=== PATIENT | female | born 1965 | race Caucasian/White ===

== ENCOUNTER 2016-06-08 17:00 | Emergency (ER) | payer MEDICAID ==
[2016-06-08 17:07] VITALS: BP 144/90; PULSE 87; RESP 16; TEMP 97.5; O2SAT 98
--- NOTE | 2016-06-08 17:14 | EDPHY ---
H & P Stated Complaint: Sore throat x 1 month Time Seen by Provider: 06/08/16 17:14 - Personal History LMP (Females 10-55): Now Current Tetanus Diphtheria and Acellular Pertussis (TDAP): Yes - Social History Smoking Status: Never smoked Constitutional: Initial Vital Signs Temperature (C) 36.4 C 06/08/16 17:04 Heart Rate 87 06/08/16 17:04 Respiratory Rate 16 06/08/16 17:04 Blood Pressure 144/90 H 06/08/16 17:04 O2 Sat (%) 98 06/08/16 17:04 Allergies/Adverse Reactions: hydrocodone bitartrate [From Vicodin] Allergy (Mild, Verified 06/08/16 17:08) makes me vomit acetaminophen [From Vicodin] Allergy (Verified 06/08/16 17:04) Home Medications: Medication Instructions Recorded AZITHROMYCIN [Z-PACK] 250 mg PO DAILY #1 packet 06/08/16 Sucralfate [Carafate Suspension] 1,000 mg PO QID #120 ml 06/08/16 Medical Decision Making ED Course/Re-evaluation: CHIEF COMPLAINT: Throat pain HISTORY OF PRESENT ILLNESS: The patient is a 50 y/o female complaining of a sore throat for the last month and more recently she developed painful swallowing. She is able to swallow and denies any difficulty breathing. She says , "it goes down, but with a huge amount of pain." She denies obvious preceding event like trauma or pill. No pertinent medical history. REVIEW OF SYSTEMS: A 10 point review of systems was performed and is negative with the exception of the elements mentioned in the history of present illness. PHYSICAL EXAM: HR, BP, O2 Sat, RR. Temp noted General Appearance: Alert, well hydrated, appropriate, and non-toxic appearing. Head: Atraumatic without scalp tenderness or obvious injury Eyes: Pupils equal, round, reactive to light and accommodation, EOMI, no trauma , no injection. Ears: Clear bilaterally, no perforation, normal landmarks Nose: Atraumatic, no rhinorrhea, clear. Throat: Mild erythema, no exudates, no lesions, normal tonsils, mucus membranes moist. Neck: Supple, 2+ carotid upstroke, nontender, no lymphadenopathy. Respiratory: No retractions, no distress, no wheezes, and no accessory muscle use. Lungs are clear to auscultation bilaterally. Neurological: Alert, appropriate, and interactive. Skin: No rashes, good turgor, no nodules on palpation. Past medical history: Denies Past surgical history: Denies Family history: Noncontributory Social history: Family member at bedside DIFFERENTIAL DIAGNOSIS: The differential diagnosis for the patient's throat pain included but was not limited to erosive esophagitis, GERD, esophageal spasm , pharyngitis. MEDICAL DECISION MAKING: This is a healthy 50 y/o female presenting with a 1-month history of throat pain and odynophagia. She has no respiratory symptoms and is still able to eat and drink. I cannot reproduce her symptoms on exam. I believe her symptoms are most likely caused by erosive esophagitis. She will be discharged with Carafate solution, azithromycin, and ENT follow up. She is comfortable with this plan. Return precautions given. Departure - Departure Disposition: Home, Routine, Self-Care Clinical Impression: Erosive esophagitis, Odynophagia Condition: Good Instructions: Esophagitis (ED) Additional Instructions: 1. Use Carafate solution as prescribed for throat pain. 2. Take azithromycin as prescribed. Be sure to complete the entire prescription. 3. Follow up with Dr. Thomas, ENT, next week. 4. Return to the ED for severe pain, inability to swallow, or difficulty breathing. Referrals: SHEBA MARIE [Primary Care Provider] - As per Instructions Kg Thomas MD [Medical Doctor] - As per Instructions Prescriptions: AZITHROMYCIN [Z-PACK] 250 mg PO DAILY #1 packet Sucralfate [Carafate Suspension] 1,000 mg PO QID #120 ml Report Scribed for: Chong Teresa Report Scribed by: Jeni Ng Date of Report: 06/08/16 Time of Report: 17:19
[2016-06-08] MEDS ORDERED: AZITHROMYCIN 250 MG TAB PO ONE (17:20)
[2016-06-08] MEDS ORDERED: SUCRALFATE 1 GM/10 ML UDCUP PO ONE (17:21)
== END 2016-06-08 17:45 | disposition home or self-care (01) ==
DX: K20.9 Esophagitis, unspecified (principal)

== ENCOUNTER → 2016-11-19 | Outpatient (CLI) | payer MEDICAID | LOC: FIMAGING 11:36 | PROVIDERS: ATTEND Family Medicine | DX: Z12.31 Encounter for screening mammogram for malignant neoplasm of breast (principal) | CPT/HCPCS: G0202 ==

== ENCOUNTER 2017-01-27 11:43 | Emergency (ER) | payer MEDICAID ==
[2017-01-27 11:51] VITALS: RESP 18
[2017-01-27] MEDS ORDERED: LIDOCAINE 5% 1 EA PATCH TD ONE (12:19)
[2017-01-27] MEDS ORDERED: IBUPROFEN 600 MG TAB PO ONE (12:19)
[2017-01-27] MEDS ORDERED: OXYCODONE/APAP 5/325 TAB PO ONE (12:19)
--- NOTE | 2017-01-27 13:15 | EDPHY ---
H & P Stated Complaint: lifting water jug a few days ago/pulled back/muscle spasms Time Seen by Provider: 01/27/17 12:03 HPI/ROS: Chief complaint: Left-sided back pain History of present illness: 51-year-old female presents to the emergency department for left-sided back pain. Patient reports the onset of symptoms 2 days ago. She was lifting water jugs when she felt something pull in her back. Since then she has had pain. It has waxed and waned in intensity. It is worse with movement. She did has used ibuprofen minimal to moderate effect. She denies other associated signs or symptoms including no direct trauma, no midline spine pain, no fevers, no paresthesias, no weakness or paralysis, bowel or bladder dysfunction. - Personal History LMP (Females 10-55): 15-21 Days Ago Current Tetanus/Diphtheria Vaccine: Yes - Medical/Surgical History Hx Asthma: No Hx Chronic Respiratory Disease: No Hx Diabetes: No Hx Cardiac Disease: No Hx Renal Disease: No Hx Cirrhosis: No Hx Alcoholism: No Hx HIV/AIDS: No Hx Splenectomy or Spleen Trauma: No Other PMH: denies - Social History Smoking Status: Never smoked - Physical Exam Exam: General Appearance: Alert, nontoxic Eyes: PERRLA Respiratory: Lungs clear to auscultation bilaterally Cardiac: Regular rate and rhythm. Gastrointestinal: Bowel sounds normal. Abdomen soft, nondistended, nontender. Neurological: Alert and oriented x4. Strength and sensation intact and symmetrical. Ambulating well. Skin: No lesions consistent with trauma inspection of the back. Musculoskeletal: The head is nontender. The spine is nontender to palpation along its entire length, there is no crepitus, bony deformity or step-off. There is tenderness over the left paraspinal muscles at the mid thoracic level. I am able to reproduce her pain. Patient is moving all extremities without difficulty. Constitutional: Initial Vital Signs Temperature (C) 36.7 C 01/27/17 11:48 Heart Rate 72 01/27/17 11:48 Respiratory Rate 18 01/27/17 11:48 Blood Pressure 140/100 H 01/27/17 11:48 O2 Sat (%) 98 01/27/17 11:48 O2 Delivery Mode Room Air Allergies/Adverse Reactions: hydrocodone bitartrate [From Vicodin] Allergy (Mild, Verified 01/27/17 11:47) makes me vomit acetaminophen [From Vicodin] Allergy (Verified 01/27/17 11:47) Home Medications: Medication Instructions Recorded oxyCODONE/APAP 5/325 [Percocet 1 tab PO Q6H #6 tab 01/27/17 5/325 (*)] Medical Decision Making ED Course/Re-evaluation: Patient seen under the supervision of my secondary supervising physician Dr. Teto Haddad. Patient presents to the emergency department for left-sided mid back pain. This appears to be musculoskeletal in nature as there was a precipitating factor of lifting heavy water jug, pain is worse with movement and it is reproducible on palpation. She is symptomatically treated with improvement in pain. She is comfortable being discharged home. Home care is discussed. Return precautions are given. Patient voiced understanding and agreement with plan. Differential Diagnosis: Included but not limited to sprain or strain, herniated intervertebral disc, bony fracture, spinal cord injury - Data Points Medications Given: Discontinued Medications Ibuprofen (Motrin) 600 mg PO EDNOW ONE Stop: 01/27/17 12:20 Last Admin: 01/27/17 12:43 Dose: 600 mg Lidocaine (Lidoderm 5%) 1 ea TD EDNOW ONE Stop: 01/27/17 12:20 Last Admin: 01/27/17 12:44 Dose: 1 ea Oxycodone/Acetaminophen (Percocet 5/325) 1 tab PO EDNOW ONE Stop: 01/27/17 12:20 Last Admin: 01/27/17 12:44 Dose: 1 tab Departure - Departure Disposition: Home, Routine, Self-Care Clinical Impression: Back pain Qualifiers: Back pain location: thoracic back pain Chronicity: acute Back pain laterality: left Qualified Code(s): M54.6 - Pain in thoracic spine Condition: Good Instructions: Back Pain (ED) Additional Instructions: Follow-up with her primary care doctor for recheck In regards to pain control see the following: Use ibuprofen [600] mg [3] times a day for the next 1-2 days for pain In addition You have been prescribed Percocet for pain. Percocet contains Tylenol, do not take extra Tylenol/acetaminophen/Apap with it. It is sedating. You can also use [id number] topical lidocaine patches as directed as needed for pain If symptoms worsen or new symptoms develop return to the emergency room for recheck Referrals: SHANE LOYA [Primary Care Provider] - As per Instructions Prescriptions: oxyCODONE/APAP 5/325 [Percocet 5/325 (*)] 1 tab PO Q6H #6 tab
[2017-01-27 13:21] VITALS: BP 132/77; PULSE 74; TEMP 98.2; O2SAT 97
[2017-01-27] MEDS ORDERED: PATCH REMOVAL 1 EA PATCH TD SCH (21:00)
== END 2017-01-27 13:21 | disposition home or self-care (01) ==
DX: M54.6 Pain in thoracic spine (principal)

== ENCOUNTER 2017-04-29 08:42 | Observation (INO) | payer OTHER ==
[2017-04-29] MEDS ORDERED: METOCLOPRAMIDE 10 MG/2 ML VIAL IVP ONE (10:04)
[2017-04-29] MEDS ORDERED: NS 1,000 ML IV ONE (10:04)
[2017-04-29] MEDS ORDERED: PROMETHAZINE HCL 25 MG/ML INJ ONE (10:06)
[2017-04-29] MEDS ORDERED: PROMETHAZINE HCL 25 MG/ML INJ IVP ONE (10:12)
--- NOTE | 2017-04-29 10:13 | EDPHY ---
General - History Smoking Status: Never smoked Narrative: CHIEF COMPLAINT: Headache x5 days, vomiting x3 days HISTORY OF PRESENT ILLNESS: Patient complains of 5 days of "migraine headache" and 3 days of nausea and vomiting. Gradual onset. It is described as consistent with previous migraine headaches. No worse. No sudden onset. No thunderclap type headache. It was initially right hemiplegic headache and now left hemiplegic headache. This is typical for her. She says she also developed vomiting 3 days ago. It has multiple episodes per day. No pain with some epigastric discomfort. No neck pain or stiffness. No fever chills. No shortness of breath. No other associated complaints or modifying factors. REVIEW OF SYSTEMS: Ten systems reviewed and are negative unless otherwise noted in the HPI PCP: Dr. walsh SPECIALISTS: None PAST MEDICAL HISTORY: Denies ongoing problems. Does have history of headaches PAST SURGICAL HISTORY: No recent surgeries SOCIAL HISTORY: Nonsmoker. FAMILY HISTORY: Noncontributory EXAMINATION General Appearance: Alert, no distress Head: normocephalic, atraumatic Eyes: Pupils equal and round, no conjunctival pallor or injection ENT, Mouth: Mucous membranes moist Neck: Normal inspection, supple, non-tender. No meningeal signs. Respiratory: Lungs are clear to auscultation. No wheezing rhonchi or crackles. Cardiovascular: Regular rate and rhythm. No murmur Gastrointestinal: Abdomen is soft and nontender. No tympany rigidity Back: non-tender, no bony abnormalities Neurological: GCS 15. A&O, nonfocal, normal gait. Strength symmetric. Skin: Warm and dry, no rash Extremities: Nontender, no pedal edema Psychiatric: Mood and affect normal DIFFERENTIAL DIAGNOSES: Including but not limited to migraine headache, nausea vomiting, dehydration, electrolyte disturbance, gastritis, cholelithiasis, cholecystitis MDM: 10:12 a.m. Reported migraine headache of 5 days duration. Left hemiplegic at this time. No meningeal signs. No evidence of subarachnoid hemorrhage or other intracranial bleed by history exam. She is in no acute distress, normal neuro examination. Not actively vomiting at this time. IV is currently being placed. Laboratory study ordered. Promethazine been administered. I will order further medications after negative test and creatinine is verified. 11:00 a.m. Patient re-evaluated. Started to improve. 11:40 a.m. Notified the potassium is 2.7. Also notified the patient is now reporting she has had diarrhea. She denies this earlier. 11:55 a.m. Pain is asking to be discharged home as her headache is improving. I re- evaluated at this time. I informed her that I would like to discharge her home potassium is too low at this time. Likely due to the vomiting/diarrhea. I have ordered p.o. and IV piggyback potassium chloride. I have ordered EKG and cardiac monitoring. She has agreed to stay for treatment. I will discuss with Dr. Arias at this time. 12:00 p.m. case discussed and hospitalist will be paged for admission 12:20 p.m. EKG shows sinus rhythm without conduction delay. Hospitalist has been paged. 12:35 p.m. Case discussed with Nancy Villalobos. Patient will be admitted to Dr. Garcia. PCU bed requested. Patient has agreed to stay. Admitted stable condition on a secured entrance monitor. EKG interpretation: Dr. Arias Sinus rhythm. No conduction delay SUPERVISION: Patient was independently examined, but I discussed the case with my secondary supervising physician Dr. Arias (MendelHunter) Medical Decision Making: I did not see this patient while she was in the emergency department. However her care was discussed with the PA while the patient was in the department. I agree with treatment plan and management. And the secondary supervising physician (Robles Arias) - Objective Vital Signs: Initial Vital Signs Temperature (C) 36.6 C 04/29/17 08:46 Heart Rate 69 04/29/17 08:46 Respiratory Rate 18 04/29/17 08:46 Blood Pressure 137/97 H 04/29/17 08:46 O2 Sat (%) 99 04/29/17 08:46 O2 Delivery Mode Room Air Allergies/Adverse Reactions: hydrocodone bitartrate [From Vicodin] Allergy (Mild, Verified 04/29/17 08:44) makes me vomit acetaminophen [From Vicodin] Allergy (Verified 04/29/17 08:44) Home Medications: Medication Instructions Recorded Codeine/Butalbit/Acetamin/Caff 1 each PO Q6 PRN #12 capsule 04/29/17 [Fioricet-Cod 88-83-863-40 Cap] Promethazine HCl [Phenergan 25mg 25 mg PO Q8 PRN #12 tab 04/29/17 (*)] Laboratory Results: Laboratory Results 04/29/17 10:31 04/29/17 11:10 Medications Given: Sodium Chloride (1/2 Ns) 1,000 mls @ 125 mls/hr IV CONT PAULA Stop: 10/26/17 20:44 Last Admin: 04/30/17 03:46 Dose: 1,000 mls Ketorolac Tromethamine (Toradol) 15 mg IVP Q6HRS PAULA Stop: 04/30/17 12:01 Last Admin: 04/30/17 06:17 Dose: Not Given Discontinued Medications Dexamethasone (Decadron Injection) 10 mg IVP EDNOW ONE Stop: 04/29/17 11:53 Last Admin: 04/29/17 11:59 Dose: Not Given Dexamethasone (Decadron Injection) 10 mg IVP EDNOW ONE Stop: 04/29/17 12:05 Last Admin: 04/29/17 12:16 Dose: 10 mg Diphenhydramine HCl (Benadryl Injection) 25 mg IVP EDNOW ONE Stop: 04/29/17 10:05 Last Admin: 04/29/17 10:37 Dose: Not Given Sodium Chloride (Ns) 1,000 mls @ 0 mls/hr IV ONCE ONE PRN Reason: Wide Open Stop: 04/29/17 10:05 Last Admin: 04/29/17 10:31 Dose: 1,000 mls Potassium Chloride (Potassium Cl 20 Meq (Premix)) 100 mls @ 50 mls/hr IV EDNOW ONE Stop: 04/29/17 13:59 Last Admin: 04/29/17 13:02 Dose: Not Given Potassium Chloride 10 meq/ (Sodium Chloride) 100 mls @ 100 mls/hr IV Q1H PAULA Stop: 04/29/17 14:59 Last Admin: 04/29/17 14:30 Dose: 100 mls Potassium Chloride 20 meq/ (Sodium Chloride) 1,000 mls @ 125 mls/hr IV CONT PAULA Stop: 10/26/17 13:14 Last Admin: 04/29/17 14:30 Dose: 1,000 mls Potassium Chloride 10 meq/ (Sodium Chloride) 100 mls @ 100 mls/hr IV ONCE ONE Stop: 04/29/17 17:59 Last Admin: 04/29/17 17:39 Dose: 100 mls Ketorolac Tromethamine (Toradol) 30 mg IVP EDNOW ONE Stop: 04/29/17 11:53 Last Admin: 04/29/17 11:59 Dose: Not Given Ketorolac Tromethamine (Toradol) 15 mg IVP EDNOW ONE Stop: 04/29/17 12:05 Last Admin: 04/29/17 12:15 Dose: 15 mg Metoclopramide HCl (Reglan Injection) 10 mg IVP EDNOW ONE Stop: 04/29/17 10:05 Last Admin: 04/29/17 10:37 Dose: Not Given Potassium Chloride (Klor Packets) 40 meq PO EDNOW ONE Stop: 04/29/17 12:01 Last Admin: 04/29/17 12:16 Dose: 40 meq Promethazine HCl (Phenergan) 12.5 mg IVP ONCE ONE Stop: 04/29/17 10:13 Last Admin: 04/29/17 10:31 Dose: 12.5 mg Departure - Departure Disposition: [facility] Clinical Impression: Hypokalemia Headache Qualifiers: Headache type: unspecified Headache chronicity pattern: acute headache Intractability: not intractable Qualified Code(s): R51 - Headache Nausea & vomiting Qualifiers: Vomiting type: unspecified Vomiting Intractability: non-intractable Qualified Code(s): R11.2 - Nausea with vomiting, unspecified Condition: Good
[2017-04-29 10:42] LABS: PLATELET COUNT 264 10^3/uL (150-400)
[2017-04-29] MEDS ORDERED: DEXAMETHASONE 10 MG/ML VIAL IVP ONE ×2 (11:52→12:04)
[2017-04-29] MEDS ORDERED: KETOROLAC 30 MG/1 ML SDV IVP ONE ×2 (11:52→12:04)
[2017-04-29] MEDS ORDERED: POTASSIUM Cl (KCl) 100 ML IV ONE ×2 (12:00→13:18)
[2017-04-29] MEDS ORDERED: POTASSIUM CL 20 MEQ PKT PO ONE (12:00)
--- NOTE | 2017-04-29 12:19 | CPEKG ---
Heart Rate: 64 RR Interval: 938 P-R Interval: 148 QRSD Interval: 96 QT Interval: 440 QTC Interval: 454 P [place]: 40 QRS [place]: 20 T Wave [place]: 20 EKG Severity - NORMAL ECG - EKG Impression: SINUS RHYTHM Electronically Signed By: Chong Teresa 29-Apr-2017 19:44:02
[2017-04-29] MEDS: POTASSIUM Cl (KCl) 10 MEQ in NS 100 ML IV SCH ×2 (13:01→14:30)
[2017-04-29] MEDS ORDERED: ACETAMINOPHEN 325 MG TAB PO PRN (13:15)
[2017-04-29] MEDS ORDERED: PROMETHAZINE HCL 25 MG TAB PO PRN (13:15)
[2017-04-29] MEDS ORDERED: PROMETHAZINE HCL 25 MG/ML INJ IVP PRN (13:15)
[2017-04-29] MEDS ORDERED: ONDANSETRON DISINTEGRATING 4 MG TAB PO PRN (13:15)
[2017-04-29] MEDS ORDERED: ONDANSETRON 4 MG/2 ML VIAL IVP PRN (13:15)
[2017-04-29] MEDS ORDERED: POTASSIUM Cl (KCl) 20 MEQ in 1/2 NS 1,000 ML IV SCH (13:15)
--- NOTE | 2017-04-29 15:55 | ASMTCASEMG ---
Living Arrangements What is your living Answers: With Spouse arrangement? Who do you live with? Type Of Residence What kind of residence do Answers: House you live in? Discharge Plan Comments Coordination Status Comments Notes: CM spoke w/ charge nurse regarding pt. Pt is a 51 y/o female admitted for headache for 5 days and vomiting for 3 days. Pt and have 3 children together. has early stages of dementia. and pt would like to stay at the hospital. Needs are TBD at this time. CM available for d/c needs. Plan: TBD Date Signed: 04/29/2017 03:54 PM Electronically Signed By:MADALYN Hill
[2017-04-29] MEDS ORDERED: PROTOCOL CALCIUM 1 DOSE IV PRN (16:09)
--- NOTE | 2017-04-29 16:43 | GHP ---
[f rep st] HISTORY AND PHYSICAL DATE OF ADMISSION: 04/29/2017 CHIEF COMPLAINT: Headache and diarrhea. HISTORY OF PRESENT ILLNESS: The patient is a 51-year-old female with history of chronic migraine hea daches as well as chronic diarrhea over the past 3 months, who presents to the emergency department c omplaining of headache with associated vomiting for the past 3 days. She developed a migraine headac he cycle about 5 days ago and 3 days ago began vomiting up to 8 times per day. She denies hematemesi s or coffee-ground emesis. This headache has been typical for her migraine headaches. She has previ ously tried prophylactic medications in the past and currently takes no medicines. She also endorses chronic diarrhea which she describes as greasy stools. She denies chronic abdominal pain but does e ndorse frequent bloating. She has had no hematochezia or melenic stools. She denies weight loss. S he had a colonoscopy 2 years ago which was completely normal by her report. She otherwise has no tony st pain, shortness of breath or urinary symptoms. In the emergency department, she received 2 doses of IV dexamethasone, 2 doses of IV Toradol, IV Benadryl, IV Reglan as well as Phenergan. Her symptom s are significantly improved at the time of my evaluation. She has had no further vomiting and her h eadache has diminished. Laboratory workup revealed a potassium of 2.7. She received 40 mEq of oral potassium and 20 mEq of IV potassium in the emergency department. She is admitted to the hospital fo r further management. PAST MEDICAL HISTORY: 1. Migraine headaches. 2. Chronic diarrhea for the past 3 months. SURGICAL HISTORY: None. MEDICATIONS: None. ALLERGIES: Hydrocodone and acetaminophen. FAMILY HISTORY: Reviewed and noncontributory. SOCIAL HISTORY: The patient lives independently. She is . Her elderly is at the bed side. She denies alcohol or tobacco use. REVIEW OF SYSTEMS: A 10-point review of systems was performed and is negative as per HPI. OBJECTIVE: VITAL SIGNS: Temperature is 36.9, blood pressure 151/97, heart rate 87, respiratory rate 20, she is 96% on room air. GENERAL: The patient is awake, alert, oriented, in no acute distress. HEENT: Head is atraumatic, normocephalic. Pupils equal, round, and reactive to light. Extraocular muscles intact. Oropharynx clear. Mucous members are moist. NECK: Supple. There is no JVD. HEA RT: Regular rate without murmur. LUNGS: Clear to auscultation bilaterally. ABDOMEN: Soft, obese, nondistended, nontender with normoactive bowel sounds. EXTREMITIES: Without cyanosis, clubbing, or edema NEUROLOGIC: Grossly nonfocal. LABORATORY DATA: CBC reveals a white count of 10.3, normal hemoglobin, normal platelets. Complete m etabolic panel shows a potassium of 2.7, chloride 120, serum bicarb 15, calcium 6.5. LFTs are normal , though albumin is low at 2.6. Lipase is normal. Beta HCG is negative. Ethyl alcohol is less than 10. EKG from the emergency department shows normal sinus rhythm with no ST-segment or T-wave changes conc erning for acute ischemia. ASSESSMENT AND PLAN: The patient is a 51-year-old female with a history of migraine headaches who pr esents to the emergency department with headache, vomiting, and reports of chronic diarrhea. 1. Hypokalemia. This is likely secondary to gastrointestinal losses in the form of chronic diarrhea hastened by recent vomiting in the setting of migraine headache. She received both p.o. and IV repl acement. I will recheck a basic metabolic panel this afternoon. Fortunately, her vomiting is resolv ed. See further workup of her diarrhea below. Once her potassium normalizes, she can likely dischar ge home. Her magnesium is normal. 2. Hypocalcemia. I will initiate replacement protocol and start Tums 3 times daily. 3. Metabolic acidosis. This is likely secondary to gastrointestinal loss of bicarb. She is receivi ng IV fluids. Hopefully this should normalize. We will recheck this afternoon. 4. Chronic diarrhea. The description of her stool sounds suspicious for malabsorption disorder. We will send a gastrointestinal pathogen panel to rule out infectious etiologies. We will also screen for celiac with a tissue transglutaminase IgA. Also send a fecal fat. I recommended that she have o utpatient followup with Gastroenterology for further workup if this initial workup is unrevealing. A lso consider small-bowel bacterial overgrowth. She did have a colonoscopy 2 years ago, which was tot ally normal. This does not seem typical presentation for inflammatory bowel disease. 5. Migraine headache. Her headache syndrome has improved after IV dexamethasone, Benadryl, Toradol, Reglan, and Phenergan. We will continue supportive care with antiemetic and p.r.n. Toradol. 6. Deep venous thrombosis prophylaxis. Patient is low risk. We will place Sequential Compression D evices (SCDs). 7. Code status. Patient is full code. 8. Disposition. Patient is admitted observation status. She will likely be a candidate for dischar ge home in the morning if her potassium is normalized. /[id number]/MODL
[2017-04-29] MEDS ORDERED: POTASSIUM Cl (KCl) 10 MEQ in NS 100 ML IV ONE (17:00)
[2017-04-29] MEDS: KETOROLAC 15 MG/1 ML SDV IVP SCH (17:39)
[2017-04-29 19:51] VITALS: RESP 16
[2017-04-29] MEDS ORDERED: 1/2 NS 1,000 ML IV SCH (20:45)
[2017-04-29] MEDS ORDERED: CALCIUM CARBONATE 500 MG CHEWABLE TAB PO SCH (22:00)
[2017-04-29 22:34] VITALS: TEMP 97.9
[2017-04-30] MEDS: KETOROLAC 15 MG/1 ML SDV IVP SCH ×2 (01:39→06:17)
[2017-04-30 07:45] VITALS: BP 129/89; PULSE 65; O2SAT 98
--- NOTE | 2017-04-30 12:07 | ASDISCHSUM ---
Discharge Information Plan Status:Home with No Needs Medically Cleared to Leave:04/29/2017 Discharge Date:04/30/2017 11:31 AM CM D/C Disposition: ADT D/C Disposition:Home, Routine, Self-Care Projected Discharge Date:04/30/2017 12:00 AM Transportation at D/C: Discharge Delay Reason: Follow-Up Date:04/30/2017 12:00 AM Discharge Slot: Final Diagnosis: Placement Information Patient Contact Information Contact Name:THADDEUS Relationship:Father Address: Work Phone: City:[place] Alternate Phone: [facility]/[place] Code:[place] Email: Financial Information Financial Class:[employer] [facility] Primary Plan Desc:GLENN ARRYOO Primary Plan Number:[id number] Secondary Plan Desc: Secondary Plan Number: Assessment Information [facility] Initial CM Assessment Living Arrangements What is your living Answers: With Spouse arrangement? Who do you live with? Type Of Residence What kind of residence do Answers: House you live in? Discharge Plan Comments Coordination Status Comments Notes: CM spoke w/ charge nurse regarding pt. Pt is a 51 y/o female admitted for headache for 5 days and vomiting for 3 days. Pt and have 3 children together. has early stages of dementia. and pt would like to stay at the hospital. Needs are TBD at this time. CM available for d/c needs. Plan: TBD Date Signed: 04/29/2017 03:54 PM Electronically Signed By:MADALYN Hill Intervention Information
--- NOTE | 2017-04-30 21:14 | GDS ---
[f rep st] DISCHARGE SUMMARY DISCHARGE DIAGNOSES: 1. Hypokalemia, resolved. 2. Migraine headache with vomiting, resolved. 3. Chronic diarrhea. CONSULTANTS: None. HISTORY: For details, please see the History and Physical dated April 29, 2017. In brief, the patient is a 51-year-old female with history of migraine headaches, who presents to the emergency department with acute migraine headache syndrome associated with vomiting, which had been ongoing for 3 days prior to arrival. In addition, she reports chronic diarrhea going on for over 3 m onths. This does not occur daily, but she occasionally has greasy stools. She denies chronic abdomi nal pain or recurrent vomiting. LABORATORY DATA: Workup in the emergency department revealed hypokalemia with potassium of 2.7, and a metabolic acidosis with a serum bicarb of 15. She was admitted to the hospital for further management. HOSPITAL COURSE: The patient was admitted to a med/surg unit. Her hypokalemia is secondary to GI lo sses in the setting of vomiting and chronic diarrhea. This was repleted back to normal with a discha rge potassium of 4.1. Her metabolic acidosis is also likely secondary to bicarb loss in the setting of her GI illness. Her serum bicarb has returned to almost normal at the time of discharge. She has had no further vomiting or diarrhea during the hospitalization. I did initiate a workup for her chr onic diarrhea including a tissue transglutaminase IgA to evaluate for celiac disease. I also request ed a GI pathogen panel qualitative fecal fat. However, she had no stools during the hospitalization, so the latter 2 studies were not done. The TTG IgA is still pending, and she is referred to GI of [facility] for further outpatient evaluation and followup on this test. DISPOSITION: Patient is discharged home in stable condition. DISCHARGE MEDICATIONS: Please see [facility] for completed outpatient medication list. There are no n ew medications at discharge prescribed by me, however, it looks like the ED did prescribe her Fiorice t and Phenergan. It is unclear if she had these prescriptions when she left. FOLLOWUP: 1. Dr. Natasha Ospina, GI of [facility]. 2. Dr. Dennise Gonzales, primary care. /[id number]/MODL
== END 2017-04-30 11:31 | disposition home or self-care (01) ==
LOC: INTOOBSV 12:35 → F3E 14:03
PROVIDERS: ADMIT Student in an Organized Health Care Education/Training Program; ATTEND Hospitalist
DX: E87.6 Hypokalemia (principal); E83.51 Hypocalcemia; E87.2 Acidosis; R19.7 Diarrhea, unspecified; R11.10 Vomiting, unspecified; G43.909 Migraine, unspecified, not intractable, without status migrainosus; K21.9 Gastro-esophageal reflux disease without esophagitis
CPT/HCPCS: 83516-90; 96374; G0378; G0480; J1100; J1885; J2550; J2765

== ENCOUNTER → 2017-11-20 | Outpatient (CLI) | payer OTHER | DX: Z12.31 Encounter for screening mammogram for malignant neoplasm of breast (principal) ==